=== PATIENT | male | born 1995 | race Caucasian/White ===

== ENCOUNTER 2018-05-07 01:17 | Emergency (ER) | payer BC ==
[~2018-05-07] VITALS: Ht 180.3 cm; Wt 61.7 kg
--- NOTE | ~2018-05-07 | EKG ---
[place], [place] ELECTROCARDIOGRAM REPORT NAME: SHASHANK VALLE UNIT #: [id number] ROOM: DOCTOR: EPIPHANY DRAFT REPORT BIRTHDATE: [birth year] [facility] Test Date: 2018-05-07 Test Time: 01:34:50 Pat Name: SHASHANK VALLE Department: Room: Gender: Library Clerk [employer]: Alana Tian : 1995 Requested By: MINISTERIO SOMMER Order Number: [id number] Reading MD: Lior Kelly MD Measurements Intervals [place] Rate: 117 P: 54 UT: 135 QRS: 9 QRSD: 89 T: 38 QT: 320 QTc: 447 Interpretive Statements Sinus tachycardia RSR' in V1 or V2, probably normal variant Electronically Signed On 05-07-2018 6:24:53 PDT by Lior Kelly MD CM:EKGRPT:ELECTROCARDIOGRAM REPORT [id number] MINISTERIO PEREZ DRAFT REPORT MINISTERIO SOMMER DO
[~2018-05-07 01:17] MED LIST: ZANTAC150 MG PO
[2018-05-07 01:32] LABS: BASO # 0.1 10*3/uL (0.0-0.1); BASO % 0.3 % (0.0-1.0); EOS # 0.2 10*3/uL (0.0-0.4); EOS % 1.3 % (1.0-4.0); HEMATOCRIT 46.7 % (42.0-52.0); HEMOGLOBIN 15.5 g/dl (14.0-18.0); LYMPH # 4.9 10*3/uL (1.3-4.4); LYMPH % 27.4 % (27.0-41.0); MEAN CORPUSCULAR HGB 31.2 pg (27.0-31.0); MEAN CORPUSCULAR HGB CONC 33.2 g/dl (33.0-37.0); MEAN PLATELET VOLUME 10.1 fl (9.6-12.3); MONO # 0.8 10*3/uL (0.1-1.0); MONO % 4.4 % (3.0-9.0); NEUT # 11.7 10*3/uL (2.3-7.9); NEUT % 66.1 % (47.0-73.0); PLATELET COUNT AUTOMATED 295 10*3/uL (130-400); RED BLOOD COUNT 4.97 10*6/uL (4.50-5.90); RED CELL DISTRI WIDTH 13.6 % (0-14.5); WHITE BLOOD COUNT 17.7 10*3/uL (4.8-10.8)
[2018-05-07 01:47] LABS: ALBUMIN 4.4 gm/dl (3.1-4.5); ALKALINE PHOSPHATASE 85 U/L (45-117); CHLORIDE 109 mmol/L (98-107); CREATININE 1.11 mg/dL (0.70-1.30); POTASSIUM 3.4 mmol/L (3.5-5.1); SGPT/ALT 28 U/L (12-78); SODIUM 143 mmol/L (136-145); TOTAL PROTEIN 7.9 gm/dL (6.4-8.2)
[2018-05-07 01:56] LABS: BUN 8 mg/dl (7-24); SGOT/AST 25 IU/L (3-35); TROPONIN I < 0.015 ng/ml (<0.045)
== END 2018-05-07 03:24 | disposition home or self-care (01) ==
LOC: ED 01:17
PROVIDERS: Student in an Organized Health Care Education/Training Program
DX: T40.1X1A Poisoning by heroin, accidental (unintentional), initial encounter (principal); Y92.9 Unspecified place or not applicable